=== PATIENT | female | born 1990 | race Hispanic/Latino ===

== ENCOUNTER 2025-03-19 15:20 | Emergency (ER) | payer SELFPAY ==
[2025-03-19 15:35] VITALS: TEMP 98.7
--- NOTE | 2025-03-19 16:08 | ERPHSYRPT ---
- History of Present Illness Time Seen by Provider: 03/19/25 15:30 Source: patient, family Patient Subjective Stated Complaint: Pt states "I have had fever, body aches, headache and pain in my left back that goes into my stomach." Triage Nursing Assessment: Pt presented alert and oriented X 3, skin pwd. Pt ambulates with an upright steady gait, able to speak in clear full setnences Pt resting comfortably on the bed. Physician History: This is a 34-year-old female with a known history of kidney stones treated in [facility] having right flank pain x 2 days radiating to the right gluteal region. Patient denies abdominal pain. No nausea or vomiting. No fever or chills. No dysuria. No hematuria. Patient has history of stents for kidney stones in [facility] as well as . Allergies/Adverse Reactions: No Known Drug Allergies Allergy (Verified 03/19/25 15:35) Home Medications: Potassium Citrate [Potassium Citrate ER] 20 meq PO DAILY 03/19/25 [History] Hx Tetanus, Diphtheria Vaccination/Date Given: No Hx Influenza Vaccination/Date Given: No Hx Pneumococcal Vaccination/Date Given: No Immunizations Up to Date: No Travel Risk - International Travel Have you traveled outside of the country in past 3 weeks: No - Emerging Infectious Disease Are you exhibiting symptoms associated with any current EIDs: Yes Symptoms: Fever, Headaches/Body Aches/, Joint Pain - Review of Systems All Other Systems: Reviewed and Negative (As per HPI otherwise negative) - Past Medical History Pertinent Past Medical History: Yes - Past Surgical History Past Surgical History: Yes Other Surgical History: tubal. right kidney stone - Female History Hx Last Menstrual Period: 12/21/2024 tubal Hx Now: No - Social History Smoking Status: Never smoker Exposure to second hand smoke: No Drug Use: none - Social Determinants of Health Will the patient participate in the screening: Declined to provide - Nursing Vital Signs Nursing Vital Signs: Initial Vital Signs Temperature 98.7 F 03/19/25 15:29 Pulse Rate 129 H 03/19/25 15:29 Respiratory Rate 20 03/19/25 15:29 Blood Pressure 148/95 03/19/25 15:29 O2 Sat by Pulse Oximetry 98 03/19/25 15:29 Pain Scale Pain Intensity 0 - Physical Exam SpO2: 98 Comments: 03/19/25 16:07 General: Well-nourished well-developed. No apparent distress. [place] obese. HEENT: Normocephalic atraumatic no obvious facial or neck deformity or injury. Neck: Supple. No deformity or mass noted. CV: RRR NL Perfusion. No edema Resp: No Respiratory distress or adventitious breath sounds Abd: ND SNT MSK: No deformity or TTP. Tender to palpation right flank radiating to right gluteal region Neuro: [place] and [place] x4. No gross focal neurologic changes Psych: No SI, HI or grave disability Ordered Tests: Active Orders 24 hr Category Date Time Status ABDOMEN AND PELVIS W/0 CONTRAS [CT] Stat Exams 03/19/25 16:05 Taken CBC W DIFF Stat Lab 03/19/25 18:48 Ordered CMP Stat Lab 03/19/25 18:48 Ordered CULTURE,URINE Stat Lab 03/19/25 16:15 Received HCG QUALITATIVE, URINE Stat Lab 03/19/25 16:15 Completed Lactic Acid Stat Lab 03/19/25 18:48 Ordered UA W/RFX UR CULTURE Stat Lab 03/19/25 16:15 Completed Medication Summary Discontinued Medications Generic Name Dose Route Start Last Admin Trade Name Freq PRN Reason Stop Dose Admin Hydrocodone Bitart/Acetaminophen 2 tab 03/19/25 16:02 03/19/25 16:19 Hydrocodone/Apap 5/325 1 Tab Tablet PO 03/19/25 16:03 2 tab STAT ONE Administration Hydrocodone Bitart/Acetaminophen Confirm 03/19/25 16:15 Hydrocodone/Apap 5/325 1 Tab Tablet Administered 03/19/25 16:16 Dose 2 tab .ROUTE .STK-MED ONE Dexamethasone Sodium Phosphate 10 mg 03/19/25 16:03 03/19/25 16:16 Dexamethasone Sod Phosphate 10 Mg/Ml PO 03/19/25 16:04 10 mg STAT ONE Administration Dexamethasone Sodium Phosphate Confirm 03/19/25 16:14 Dexamethasone Sod Phosphate 10 Mg/Ml Administered 03/19/25 16:15 Dose 10 mg .ROUTE .STK-MED ONE Ibuprofen 800 mg 03/19/25 16:04 03/19/25 16:17 Ibuprofen 400 Mg Tablet PO 03/19/25 16:05 800 mg STAT ONE Administration Ibuprofen Confirm 03/19/25 16:14 Ibuprofen 400 Mg Tablet Administered 03/19/25 16:15 Dose 400 mg .ROUTE .STK-MED ONE Ibuprofen Confirm 03/19/25 16:18 Ibuprofen 400 Mg Tablet Administered 03/19/25 16:19 Dose 400 mg .ROUTE .STK-MED ONE Ondansetron HCl 4 mg 03/19/25 16:04 03/19/25 16:17 Zofran 4 Mg/Udtablet Orally Disintegrating PO 03/19/25 16:05 4 mg STAT ONE Administration Ondansetron HCl Confirm 03/19/25 16:14 Zofran 4 Mg/Udtablet Orally Disintegrating Administered 03/19/25 16:15 Dose 4 mg .ROUTE .STK-MED ONE Lab/Rad Data: Laboratory Results 03/19/25 03/19/25 Range/Units 16:15 16:15 Urine Color Yellow (Yellow) Urine Appearance Cloudy A (Clear) Urine pH 6.5 (4.6-8.0) Ur Specific [place] 1.015 (1.005-1.030) Urine Protein 30 (Negative) Urine Glucose (UA) Negative (Negative) mg/dL Urine Ketones Negative (Negative) Urine Blood Large A (Negative) Urine Nitrite Negative (Negative) Urine Bilirubin Negative (Negative) Urine Urobilinogen 1.0 A (0.2) mg/dL Ur Leukocyte Esterase Large A (Negative) U Hyaline Cast (Auto) 3-5 A (0-2) /LPF Urine Microscopic RBC 51-100 A (0-5) /HPF Urine Microscopic WBC >100 A (0-5) /HPF Ur Epithelial Cells Rare (None Seen) /HPF Urine Bacteria Few A (None Seen) /HPF Urine Culture Reflexed YES (NO) Urine HCG, Qual NEGATIVE (NEGATIVE) - Progress Progress Note: 03/19/25 18:[address] Recio [facility] emergency physician for follow-up of laboratory studies CT and final disposition. - Departure Clinical Impression: UTI (urinary tract infection) Qualifiers: Urinary tract infection type: acute pyelonephritis Qualified Code(s): N10 - Acute pyelonephritis Condition: Stable Critical Care Time: No Referrals: DOCTOR,NO FAMILY [Primary Care Provider, UNKNOWN] - Follow up/PCP as directed
[2025-03-19] MEDS ORDERED: MOTRIN 400 MG ONE ×2 (16:14→16:18)
[2025-03-19] MEDS ORDERED: ZOFRAN ODT 4 MG ONE (16:14)
[2025-03-19] MEDS ORDERED: DECADRON 10MG INJ. ONE (16:14)
[2025-03-19] MEDS ORDERED: NORCO 5/325 MG ONE (16:15)
[2025-03-19] MEDS: DECADRON 10MG INJ. PO ONE (16:16)
[2025-03-19] MEDS: MOTRIN 400 MG PO ONE (16:17)
[2025-03-19] MEDS: ZOFRAN ODT 4 MG PO ONE (16:17)
[2025-03-19] MEDS: NORCO 5/325 MG PO ONE (16:19)
[2025-03-19 16:22] LABS: HCG URINE TEST NEGATIVE (NEGATIVE)
[2025-03-19 16:27] LABS: Glucose, Urine Negative (Negative); Protein,Urine Dip 30 (Negative); RBC 51-100 /HPF (0-5); WBC >100 /HPF (0-5)
[2025-03-19] MEDS: ROCEPHIN 1 GM / 100 ML NaCl 1 GM/100 ML IVPB IV SCH (19:05)
[2025-03-19] MEDS ORDERED: ROCEPHIN 1 GM / 100 ML NaCl 1 GM/100 ML IVPB IV ONE (19:05)
[2025-03-19 19:38] LABS: BASOPHIL % 0.3 % (0.1-1.2); Basophil (Absolute #) 0.05 x10^3/uL (0.01-0.08); Eosinophil (Absolute #) 0 x10^3/uL (0.04-0.36); Hematocrit 43.9 % (34.1-44.9); Hemoglobin 13.8 g/dL (11.2-15.7); IMMATURE GRAN # 0.16 x10^3u/L (0.001-0.031); IMMATURE GRAN % 0.8 % (0.001-0.429); Lymphocyte (Absolute #) 2.09 x10^3/uL (1.18-3.74); Mean Corpuscular Hemoglobin 26.5 pg (25.6-32.2); Mean Corpuscular Hgb Concent. 31.4 g/dL (32.2-35.5); Monocyte (Absolute #) 1.25 x10^3/uL (0.24-0.86); NUCLEATED RBC # 0.00 x10^3u/L (0.00-0.012); NUCLEATED RBC % 0.0 % (0.00-0.2); Platelet Count 361 x10^3/uL (182-369); Red Blood Count 5.21 x10^6/uL (3.93-5.22); White Blood Count 20.0 x10^3/uL (3.98-10.04)
[2025-03-19 19:52] LABS: Calcium 9.0 mg/dL (8.4-10.2); Carbon Dioxide 20.0 mmol/L (22-30); Creatinine 1 0.88 mg/dL (0.52-1.04); EST GLOMERULAR FILTRATION RATE 87.8 ML/MIN; Glucose 147.0 mg/dL (74-106); Potassium 3.5 mmol/L (3.5-5.1); SGOT/AST 22.0 U/L (14-36); SGPT/ALT 22.0 U/L (0-35); Total Protein 8.6 g/dL (6.3-8.2)
[2025-03-19 23:30] VITALS: BP 107/73; PULSE 70; RESP 14; O2SAT 97
--- NOTE | 2025-03-20 08:53 | XRAY ---
Indication: Flank pain. Multiple contiguous axial images obtained through the abdomen and pelvis without contrast. Comparison: None Lung bases clear. Heart not enlarged. Noncontrasted stomach and bowel loops appear nonobstructed with normal appendix. Left kidney demonstrates UPJ staghorn calculus measuring at least 1.0 x 2.5 x 1.5 cm. Moderate hydronephrosis with renal edema favors partial obstructive uropathy. 2 additional left renal micro calculi. Right kidney demonstrates additional calculi, largest mid calyx measuring 1.9 x 1.9 x 0.9 cm without hydronephrosis or evidence for obstructive uropathy. No free fluid/air. Remaining liver, gallbladder, pancreas, spleen, adrenal glands, kidneys, ureters, bladder, uterus, and aorta are unremarkable for noncontrast exam. Osseous structures intact. Impression: 1. Left renal UPJ staghorn calculus producing obstructive uropathy as detailed. Additional bilateral renal calculi. 2. Remaining CT abdomen/pelvis without contrast exam is negative.
== END 2025-03-19 22:30 | disposition short-term general hospital (02) ==
LOC: ED 15:20
DX: N10 Acute pyelonephritis (principal); N13.6 Pyonephrosis; R10.A1 Flank pain, right side; Z79.899 Other long term (current) drug therapy